=== PATIENT | female | born 1945 | race Caucasian/White ===

== ENCOUNTER 2020-11-18 10:08 | Day surgery (SDC) | payer MEDICARE ==
[2020-11-17 15:14] LABS: BASOPHILS % (AUTO) 0.5 % (0-1); EOSINOPHILS # (AUTO) 0.2 X10'3 (0-0.9); EOSINOPHILS % (AUTO) 2.2 % (0-6); HEMATOCRIT 36.1 % (35.0-45.0); HEMOGLOBIN 11.5 g/dl (12.0-16.0); LYMPHOCYTES # (AUTO) 1.7 X10'3 (1.1-4.8); LYMPHOCYTES % (AUTO) 23.7 % (21-51); MEAN CORPUSCULAR HEMOGLOBIN 24.2 PG (27.0-31.0); MEAN CORPUSCULAR HGB CONC 31.8 g/dL (33.0-36.5); MEAN CORPUSCULAR VOLUME 76.1 FL (78-98); MEAN PLATELET VOLUME 8.7 FL (7.4-10.4); MONOCYTES # (AUTO) 0.5 X10'3 (0-0.9); MONOCYTES % (AUTO) 7.4 % (2-12); NEUTROPHILS # (AUTO) 4.7 X10'3 (1.8-7.7); NEUTROPHILS % (AUTO) 66.2 % (42-75); PLATELET COUNT 255 X10'3 (140-440); RED BLOOD COUNT 4.75 X10'6 (4.20-5.60); RED CELL DISTRIBUTION WIDTH 18.9 % (11.5-14.5); WHITE BLOOD COUNT 7.1 X10'3 (4.5-11.0)
[2020-11-17 15:26] LABS: ALBUMIN 3.6 G/DL (3.4-5.0); ANION GAP 3 (8-16); BLOOD UREA NITROGEN 19 MG/DL (7-18); BUN/CREATININE RATIO 20.4 (6.6-38.0); CALCIUM 9.7 MG/DL (8.5-10.1); CHLORIDE 105 MMOL/L (99-107); CREATININE 0.93 MG/DL (0.40-0.90); GLUCOSE 104 MG/DL (70-104); POTASSIUM 4.3 MMOL/L (3.5-5.1); SODIUM 138 MMOL/L (135-145); TOTAL CARBON DIOXIDE 29.6 MMOL/L (24-32); eGFR 59 ML/MIN
[2020-11-17 18:45] LABS: ANISOCYTOSIS 2+; MICROCYTOSIS 1+; PLATELET ESTIMATE NORMAL
[2020-11-17 18:46] LABS: ELLIPTOCYTES 1+
[2020-11-18] VITALS (18 sets, daily range): BP systolic 104–125; BP diastolic 71–89
[~2020-11-18] VITALS: Ht 167.6 cm; Wt 103.8 kg
[2020-11-18] MEDS ORDERED: LORazepam 0.5 MG tablet PO ONE (10:30)
[2020-11-18] MEDS ORDERED: normal saline 1000ml 1,000 ML IV SCH (10:30)
[2020-11-18] MEDS ORDERED: atropine 0.1mg/ml 10ml syringe IV ONE (10:30)
[2020-11-18] MEDS ORDERED: morphine 10mg/ml inj. IV ONE (10:30)
[2020-11-18] MEDS ORDERED: diphenhydrAMINE 25mg capsule PO ONE (10:30)
[2020-11-18] MEDS ORDERED: amiodarone 150mg/dext, iso-os 100 ML IV ONE (10:30)
[2020-11-18] MEDS ORDERED: MIDAZolam 1mg/ml 10ml vial IV ONE (10:30)
[2020-11-18] MEDS ORDERED: FURO20TA4 PO (10:41)
[2020-11-18] MEDS ORDERED: WARF2.5T82 (10:41)
[2020-11-18] MEDS ORDERED: POTA20TA19 PO (10:41)
[2020-11-18] MEDS ORDERED: AMIO200T61 PO (10:41)
[2020-11-18] MEDS ORDERED: MONT10TA32 PO (10:41)
[2020-11-18] MEDS ORDERED: CARV6.2555 PO (10:41)
[2020-11-18] MEDS ORDERED: WARF1TAB83 PO (10:41)
[2020-11-18] MEDS ORDERED: PRAV40TA3 PO (10:41)
[2020-11-18] MEDS ORDERED: MULT-1085 PO (10:44)
[2020-11-18] MEDS ORDERED: ALBUTEROL NEBS (10:44)
[2020-11-18] MEDS ORDERED: CHOL20002 PO (10:44)
[2020-11-18] MEDS ORDERED: WARF3TAB56 PO (10:49)
[2020-11-18] MEDS ORDERED: WARF4TAB69 PO (10:49)
== END 2020-11-18 13:25 | disposition home or self-care (01) ==
LOC: SSTAY O 10:08
PROVIDERS: ATTEND Internal Medicine Cardiovascular Disease
DX: I48.19 Other persistent atrial fibrillation (principal); I11.0 Hypertensive heart disease with heart failure; I50.32 Chronic diastolic (congestive) heart failure; J45.909 Unspecified asthma, uncomplicated; E78.5 Hyperlipidemia, unspecified; Z79.899 Other long term (current) drug therapy; Z79.01 Long term (current) use of anticoagulants; Z87.891 Personal history of nicotine dependence; Z86.73 Personal history of transient ischemic attack (TIA), and cerebral infarction without residual deficits; Z85.828 Personal history of other malignant neoplasm of skin; Z98.51 Tubal ligation status; Z90.49 Acquired absence of other specified parts of digestive tract; Z98.890 Other specified postprocedural states
CPT/HCPCS: 36415; 80048; 85025; 85610; 92960; 93005; 94799; J2250; J2270; J7030; 85008